=== PATIENT | female | born 1995 | race Caucasian/White ===

== ENCOUNTER → 2018-12-16 17:35 | Outpatient (CLI) | payer OTHER, SELFPAY ==
--- NOTE | 2018-12-16 | DI.MRI.S_ITS ---
PROCEDURE: MR ANKLE LT WO CON INDICATIONS: LEFT ANKLE PAIN TECHNIQUE: Noncontrast sagittal T1 spin echo and T2 fast spin echo with fat saturation, axial proton density fast spin echo and T2 fast spin echo with fat saturation, coronal T1 spin echo and T2 fast spin echo with fat saturation through the ankle/hindfoot. COMPARISON: None. FINDINGS: Image quality: Diagnostic. Bones and joints: No acute fracture, dislocation, or suspicious osseous lesion is identified involving the osseous structures of the midfoot or hindfoot. Ankle mortise is well-maintained. No osteochondral defects are appreciated. A small bone island along the anterior margin of the tibial plafond is incidentally noted. Subtle marrow edema involving the posterior aspect of the talus is present. No significant degenerative changes of the midfoot or hindfoot joints are present. No joint effusions are identified. Medial structures: The deltoid and spring ligaments are intact. The tibialis posterior, flexor digitorum longus, and flexor hallucis longus tendons are intact with a small amount of fluid is contained within their corresponding tendon sheaths. The posterior tibial nerve to the tarsal tunnel is within normal limits. Lateral structures: The anterior and posterior distal tibiofibular ligaments are intact. The anterior and posterior talofibular ligaments are intact. There is slight heterogeneity involving these ligaments. The calcaneofibular ligament is intact. There is mild edema about the calcaneofibular and posterior talofibular ligaments. The peroneus brevis and peroneus longus tendons are intact. Minimal peritendinous edema is incidentally noted. No significant hearing is appreciated. Anterior structures: The tibialis anterior, extensor hallucis longus, and extensor digitorum longus tendons appear intact. Posterior and plantar structures: Achilles tendon is intact. There are, there slight increased signal involving the mid to distal margin of the Achilles tendon with increased signal noted at the myotendinous junction. Medial and lateral bands of the plantar fascia are of normal thickness. IMPRESSION: 1. Mild Achilles tendinopathy. 2. Possible low-grade sprains involving the lateral ankle ligaments. No tethering is evident. 3. Mild tenosynovitis involving the medial flexor tendons. 4. Minimal marrow edema at the posterior talus may be degenerative or related to bone contusion. There is no fracture evident. Dictated by: Flex Barrientos M.D. on 12/17/2018 at 9:39 Approved by: Flex Barrientos M.D. on 12/17/2018 at 9:44
== END ==
PROVIDERS: Visit Provider Family Medicine
DX: M25.572 Pain in left ankle and joints of left foot (principal); M65.872 Other synovitis and tenosynovitis, left ankle and foot; M67.972 Unspecified disorder of synovium and tendon, left ankle and foot
CPT/HCPCS: 73721

== ENCOUNTER 2019-09-21 11:20 | Emergency (ER) | payer OTHER, SELFPAY ==
[2019-09-21] VITALS (14 sets, daily range): BP systolic 86–144; BP diastolic 54–90; PULSE 85–110; RESP 16–29; TEMP 36.7; O2SAT 96–100; BMI 43.6
[2019-09-21 13:11] LABS: Add Manual Diff / Slide Review NO; Basophils Absolute Auto 100 /uL (0-100); Basophils Percent Auto 0.5 % (0-2); Eosinophils Absolute Auto 400 /uL (0-450); Hematocrit 34.5 % (36-46); Hemoglobin 11.7 g/dL (12.0-16.0); Lymphocytes Absolute Auto 2500 /uL (1100-4500); Lymphocytes Percent Auto 18.3 % (25-40); Mean Corpuscular HGB Conc 33.9 % (30-36); Mean Corpuscular Hemoglobin 27.7 PG (26-34); Mean Corpuscular Volume 81.5 fL (80-100); Monocytes Absolute Auto 700 /uL (0-900); Monocytes Percent Auto 5.3 % (3-14); Neutrophils Absolute Auto 9900 /uL (1500-7000); Neutrophils Percent Auto 72.9 % (50-75); Platelet Count 226 X10^3/uL (150-400); Red Blood Cell Count 4.23 X10^6/uL (4.0-5.2); Red Cell Distribution Width 13.4 % (11.6-14.8); White Blood Cell Count 13.5 X10^3/uL (4.5-11.0)
[2019-09-21 13:15] LABS: Prothrombin Time 11.1 SECONDS (10.1-12.7)
[2019-09-21 13:17] LABS: PTT Partial Thromboplastin Tim 25 SECONDS (26.4-36.2)
[2019-09-21 13:18] LABS: Alanine Aminotransferase 14 IU/L (<35); Albumin 3.7 g/dL (3.5-5.0); Albumin Globulin Ratio 1.2 (1.0-2.8); Alkaline Phosphatase 129 U/L (38-126); Aspartate Aminotransferase 20 IU/L (14-36); BUN Creatinine Ratio 11.6 (6-22); Bilirubin Total 0.4 mg/dL (0.2-1.3); Blood Urea Nitrogen 5 mg/dL (7-17); Calcium 9.5 mg/dL (8.4-10.2); Carbon Dioxide 23 mmol/L (22-32); Chloride 106 mmol/L (98-107); Creatine Kinase 24 U/L (30-135); Estimated Glomerular Filt Rate > 60.0 mL/min (>60); Globulin 3.2 g/dL (1.7-4.1); Glucose 86 mg/dL (70-100); HEMOLYSIS < 15 (0-50); Lipase 78 U/L (23-300); Potassium 3.8 mmol/L (3.4-5.1); Sodium 135 mmol/L (137-145); Total Protein 6.9 g/dL (6.3-8.2)
[2019-09-21 13:30] LABS: Troponin I < 0.012 ng/mL (0.01-0.034)
--- NOTE | 2019-09-21 14:03 | ED.SYNCOPE ---
HPI - Syncope General Chief Complaint: Shortness of Breath/Dyspnea Stated Complaint: 32 weeks preg/syncope x3days ago Time Seen by Provider: 09/21/19 13:11 Source: patient Mode of arrival: Ambulatory Limitations: no limitations History of Present Illness HPI narrative: Patient complains of dyspnea since syncopal episode 3 days ago. Patient is 32 weeks . High risk due to history of epilepsy. On Thursday at checkout line in grocery store feel dizzy and passed out. She states this is not typical of a seizure. No postictal period shortness of breath is not typical of her asthma. Has exertional dyspnea. No chest pain. Patient OBGYN in [place]. Patient denies any vaginal bleeding or fluid leak. No abdominal or pelvic pain. Denies any injury from syncope. On Thursday she did have right calf pain like a charley horse. None since then. No prior history of blood clots in legs or lungs. No recent illness cough cold congestion fever chills. Patient is patient states was using inhaler at home without improvement. On Thursday before her syncope episode she states she did not eat or drink very much that morning and before passing out. Related Data Home Medications Medication Instructions Recorded Confirmed [VINPAT] #0 04/28/16 levetiracetam [Keppra] 250 mg PO BID #0 04/28/16 Allergies Allergy/AdvReac Type Severity Reaction Status Date / Time acetaminophen [From TYLENOL] Allergy Unknown Verified 09/21/19 15:48 latex [LATEX] Allergy Unknown Verified 09/21/19 15:48 oxycodone [OXYCODONE] Allergy Unknown Verified 09/21/19 15:48 Review of Systems Review of Systems Narrative: GENERAL: Denies chills, fatigue, malaise, fever, sweats. HEENT: Denies sinus pain, ear pain, sore throat, difficulty swallowing, dizziness. RESPIRATORY: Denies cough, wheezing, hemoptysis, sputum. Complains of dyspnea CARDIOVASCULAR: Denies chest pain, palpitations, orthopnea, edema, complains of syncope GASTROINTESTINAL: Denies nausea, vomiting, abdominal pain, diarrhea, constipation, melena. : Denies dysuria, frequency, incontinence, hematuria, urinary retention. MUSCULOSKELETAL: denies weakness, joint pain, or bony pain SKIN: Denies rash, skin lesions, or other NEUROLOGIC: Denies weakness, headache, numbness, change in speech, confusion, seizures, incoordination. PSYCHIATRIC: No concerning psychosocial issues. ROS Unobtainable: All systems reviewed & are unremarkable except as noted in HPI and below Patient History Social History Smoking Status: Never smoker Smoking Status: Never smoker Substance Use Type: does not use Exam Narrative Exam Narrative: GENERAL: patient appears stated age. Well-nourished, well-developed patient, in no distress, not toxic HEAD: Atraumatic. Normocephalic. EYES: Pupils equal round and reactive. Extraocular motions intact. No scleral icterus. No injection or drainage. ENT: Nose without bleeding, purulent drainage. Throat without erythema, tonsillar hypertrophy or exudate. Airway patent. NECK: Trachea midline. Non tender CARDIOVASCULAR: Regular rate and rhythm without murmurs, gallops, or rubs. RESPIRATORY: Clear to auscultation. Breath sounds equal bilaterally. No wheezes, rales, or rhonchi. GASTROINTESTINAL: Abdomen soft, non-tender, nondistended. EXTREMITIES: No edema or joint tenderness. BACK: Nontender without deformity or crepitance. No flank tenderness. NEURO: AOx3. SKIN: No rash or erythema of visible areas PSYCH: Not anxious, is cooperative Initial Vital Signs Initial Vital Signs: Vital Signs Temperature 98.0 F 09/21/19 11:52 Pulse Rate 105 H 09/21/19 11:52 Respiratory Rate 16 09/21/19 11:52 Blood Pressure 133/82 09/21/19 11:52 Pulse Oximetry 100 09/21/19 11:52 Course Orders Ordered: Discontinued Medications Sodium Chloride (Normal Saline 0.9%) 500 mls @ 1,000 mls/hr IV BOLUS ONE Stop: 09/21/19 17:46 Last Infusion: 09/21/19 19:10 Dose: 0 mls/hr Documented by: Admin: 09/21/19 17:57 Dose: 1,000 mls/hr Documented by: [email or web address] Reevaluation(s) Reevaluation #1: Heart rate 95 no dyspnea. No chest pain. Unable get heart tones but patient states as feel baby move while here. Patient agrees for CT scan PE protocol if D-dimer abnormal, understands risk of radiation to self as well as baby. However patient states she would like the CT scan so that way she does not to worry about whether she has pulmonary embolism or not Time: 16:45 Reevaluation #2: No distress 100% room air at this time at rest. No tachycardia. Patient up and walk to the bathroom on pulse ox, denies any dyspnea. 99% room air, denies any dyspnea Time: 18:48 Consultations Consultation #1: Spoke with Dr. William, patient trim setter helper OBGYN at [place]. He states patient may have CT scan PE protocol as that equates to the same amount of radiation for chest x-ray and V/Q scan. Time: 16:46 Vital Signs Vital signs: Vital Signs - 8 hr 09/21/19 11:52 09/21/19 13:45 09/21/19 14:31 Temperature 98.0 F Pulse Rate 105 H 88 Pulse Rate [Orthostatic Lying] 100 H Pulse Rate [Orthostatic Sitting] 94 H Pulse Rate [Orthostatic Standing] 98 H Respiratory Rate 16 24 Blood Pressure 133/82 133/73 Blood Pressure [Orthostatic Lying] 126/64 Blood Pressure [Orthostatic Sitting] 100/65 Blood Pressure [Orthostatic Standing] 121/74 Pulse Oximetry 100 100 09/21/19 14:32 09/21/19 15:00 09/21/19 15:31 Temperature Pulse Rate 99 H 85 86 Pulse Rate [Orthostatic Lying] Pulse Rate [Orthostatic Sitting] Pulse Rate [Orthostatic Standing] Respiratory Rate 20 16 19 Blood Pressure 133/73 127/66 104/56 L Blood Pressure [Orthostatic Lying] Blood Pressure [Orthostatic Sitting] Blood Pressure [Orthostatic Standing] Pulse Oximetry 99 99 98 09/21/19 16:00 09/21/19 16:30 09/21/19 16:33 Temperature Pulse Rate 98 H 98 H 97 H Pulse Rate [Orthostatic Lying] Pulse Rate [Orthostatic Sitting] Pulse Rate [Orthostatic Standing] Respiratory Rate 23 17 21 Blood Pressure 97/54 L 86/67 L 125/84 Blood Pressure [Orthostatic Lying] Blood Pressure [Orthostatic Sitting] Blood Pressure [Orthostatic Standing] Pulse Oximetry 97 96 98 09/21/19 16:34 09/21/19 17:00 09/21/19 17:30 Temperature Pulse Rate 98 H 105 H 110 H Pulse Rate [Orthostatic Lying] Pulse Rate [Orthostatic Sitting] Pulse Rate [Orthostatic Standing] Respiratory Rate 20 17 29 H Blood Pressure 125/84 135/75 144/90 H Blood Pressure [Orthostatic Lying] Blood Pressure [Orthostatic Sitting] Blood Pressure [Orthostatic Standing] Pulse Oximetry 97 98 97 09/21/19 17:51 09/21/19 18:00 Temperature Pulse Rate 93 H 91 H Pulse Rate [Orthostatic Lying] Pulse Rate [Orthostatic Sitting] Pulse Rate [Orthostatic Standing] Respiratory Rate 22 22 Blood Pressure 133/63 123/58 L Blood Pressure [Orthostatic Lying] Blood Pressure [Orthostatic Sitting] Blood Pressure [Orthostatic Standing] Pulse Oximetry 98 97 MDM - Syncope Lab Data Attestation: I reviewed the patient's lab results. Result diagrams: 09/21/19 13:00 09/21/19 13:00 Labs: Lab Results 09/21/19 09/21/19 09/21/19 Range/Units 13:00 13:00 13:00 WBC 13.5 H (4.5-11.0) X10^3/uL RBC 4.23 (4.0-5.2) X10^6/uL Hgb 11.7 L (12.0-16.0) g/dL Hct 34.5 L (36-46) % MCV 81.5 (80-100) fL MCH 27.7 (26-34) PG MCHC 33.9 (30-36) % RDW 13.4 (11.6-14.8) % Plt Count 226 (150-400) X10^3/uL Neut % (Auto) 72.9 (50-75) % Lymph % (Auto) 18.3 L (25-40) % [place] % (Auto) 5.3 (3-14) % Eos % (Auto) 3.0 (2-4) % Baso % (Auto) 0.5 (0-2) % Neut # (Auto) 9900 H (9019-9081) /uL Lymph # (Auto) 2500 (8079-5306) /uL [place] # (Auto) 700 (0-900) /uL Eos # (Auto) 400 (0-450) /uL Baso # (Auto) 100 (0-100) /uL PT 11.1 (10.1-12.7) SECONDS INR 1.0 (0.9-1.3) APTT 25 L (26.4-36.2) SECONDS D-Dimer (<230) ng/mL Sodium 135 L (137-145) mmol/L Potassium 3.8 (3.4-5.1) mmol/L Chloride 106 (98-107) mmol/L Carbon Dioxide 23 (22-32) mmol/L BUN 5 L (7-17) mg/dL Creatinine 0.43 L (0.52-1.04) mg/dL Estimated GFR > 60.0 (>60) mL/min BUN/Creatinine Ratio 11.6 (6-22) Glucose 86 (70-100) mg/dL Calcium 9.5 (8.4-10.2) mg/dL Magnesium (1.6-2.3) mg/dL Total Bilirubin 0.4 (0.2-1.3) mg/dL AST 20 (14-36) IU/L ALT 14 (<35) IU/L Alkaline Phosphatase 129 H (38-126) U/L Total Creatine Kinase 24 L (30-135) U/L CK-MB (CK-2) TNP CK-MB (CK-2) Rel Index TNP Troponin I < 0.012 (0.01-0.034) ng/mL Total Protein 6.9 (6.3-8.2) g/dL Albumin 3.7 (3.5-5.0) g/dL Globulin 3.2 (1.7-4.1) g/dL Albumin/Globulin Ratio 1.2 (1.0-2.8) Lipase 78 (23-300) U/L 09/21/19 09/21/19 Range/Units 13:00 13:00 WBC (4.5-11.0) X10^3/uL RBC (4.0-5.2) X10^6/uL Hgb (12.0-16.0) g/dL Hct (36-46) % MCV (80-100) fL MCH (26-34) PG MCHC (30-36) % RDW (11.6-14.8) % Plt Count (150-400) X10^3/uL Neut % (Auto) (50-75) % Lymph % (Auto) (25-40) % [place] % (Auto) (3-14) % Eos % (Auto) (2-4) % Baso % (Auto) (0-2) % Neut # (Auto) (1520-3377) /uL Lymph # (Auto) (0955-6642) /uL [place] # (Auto) (0-900) /uL Eos # (Auto) (0-450) /uL Baso # (Auto) (0-100) /uL PT (10.1-12.7) SECONDS INR (0.9-1.3) APTT (26.4-36.2) SECONDS D-Dimer 2478 H (<230) ng/mL Sodium (137-145) mmol/L Potassium (3.4-5.1) mmol/L Chloride (98-107) mmol/L Carbon Dioxide (22-32) mmol/L BUN (7-17) mg/dL Creatinine (0.52-1.04) mg/dL Estimated GFR (>60) mL/min BUN/Creatinine Ratio (6-22) Glucose (70-100) mg/dL Calcium (8.4-10.2) mg/dL Magnesium 1.8 (1.6-2.3) mg/dL Total Bilirubin (0.2-1.3) mg/dL AST (14-36) IU/L ALT (<35) IU/L Alkaline Phosphatase (38-126) U/L Total Creatine Kinase (30-135) U/L CK-MB (CK-2) CK-MB (CK-2) Rel Index Troponin I (0.01-0.034) ng/mL Total Protein (6.3-8.2) g/dL Albumin (3.5-5.0) g/dL Globulin (1.7-4.1) g/dL Albumin/Globulin Ratio (1.0-2.8) Lipase (23-300) U/L Imaging Data US - DVT: Radiologist's Impression: [address] [address] Ultrasound Report Signed Patient: Katalina Gonzales KMR#: [id number] : 1995Acct:[id number] Age/Sex: 23 / FDate of Service: 09/21/19 Loc: ED Accession Number: [id number] Procedure: US periph venous low extrem rt Ordering Provider: Abraham Rolle MD PROCEDURE: US PERIP VENOUS LOW EXTREM RT INDICATIONS: RIGHT CALF PAIN TECHNIQUE: Real-time imaging, as well as color and pulse Doppler interrogation, were performed of the lower extremity deep veins from the inguinal ligament to the popliteal fossa. COMPARISON: None. FINDINGS: The common femoral, femoral and popliteal veins are normally compressible, and free of intraluminal thrombus. Color and pulse Doppler demonstrate normal phasic intraluminal flow. There is normal augmentation response to distal compression maneuver. IMPRESSION: No DVT in the right lower extremity. Dictated by: Suraj Jones M.D. on 09/21/2019 at 14:23 Approved by: Suraj Jones M.D. on 09/21/2019 at 14:28 ECG Data Attestation: I personally reviewed and interpreted this ECG as follows: Interpretation: Sinus rhythm ventricular rate [address] elevation or depression MDM Narrative Medical decision making narrative: Appropriate for discharge home. No PE no dissection. No DVT. Onset 3 days ago EKG and troponin normal. 99% room air walking around the emergency department. No repeat enzymes or EKG indicated. Syncopal episode on Thursday likely due to vasovagal, patient did not eat or drink very much prior to the event on that day. Dyspnea since then nonspecific however no PE. No asthma symptoms. However 100% room air and not dyspneic on exertion. No signs of congestive heart failure or fluid overload. Appropriate for discharge home Discharge Plan Departure Patient Disposition: Home Clinical Impression: Syncope and collapse Dyspnea Qualifiers: Dyspnea type: unspecified Qualified Code(s): R06.00 - Dyspnea, unspecified Discharge Date/Time: 09/21/19 19:12 Instructions: DI for Syncope in Adults (Fainting), DI for Shortness of Breath Activity Restrictions/Additional Instructions: Call your OBGYN and Maternal clinic tomorrow for office re-evaluation and recheck within a week. Return immediately if worse or if any questions or concerns. Continue home medications Prescriptions: No Action levetiracetam [Keppra] 250 MG tablet 250 mg PO BID Qty: 0 RF: 0 [VINPAT] Qty: 0 RF: 0 Referrals: Cindy Almaraz MD [Primary Care Provider] -
[2019-09-21 16:34] LABS: Magnesium 1.8 mg/dL (1.6-2.3)
[2019-09-21 16:47] LABS: D Dimer 2478 ng/mL (<230)
--- NOTE | 2019-09-21 17:15 | DI.CT.S_ITS ---
PROCEDURE: CT ANGIO CHEST PE PROTOCOL INDICATIONS: syncope/soa TECHNIQUE: After the administration of intravenous contrast, 2 mm thick sections acquired from the pulmonary apices to the posterior costophrenic angles. 3-dimensional maximum intensity projection (MIP) coronal and sagittal reformats were then acquired through the thorax. For radiation dose reduction, the following was used: automated exposure control, adjustment of mA and/or kV according to patient size. COMPARISON: None. FINDINGS: Image quality: Suboptimal study secondary to patient body habitus and contrast timing. Pulmonary arteries: Heterogeneous opacification of subsegmental pulmonary arteries secondary to suboptimal imaging technique. No large occlusive pulmonary artery embolus. Pulmonary arteries are normal in size, and demonstrate no intraluminal filling defects to suggest central pulmonary embolism. Lungs and pleura: Lungs are clear. No pleural effusions or pneumothorax. Central and peripheral airways are patent. Mediastinum: Heart size is normal, without pericardial effusion. No mediastinal or hilar adenopathy. Thoracic aorta is normal in caliber and enhancement. Esophagus is normal in caliber, with a very small hiatal hernia. Bones and chest wall: No suspicious bony lesions. Ribs and thoracic spine appear intact throughout. Thyroid gland is normal . No axillary or supraclavicular adenopathy. Abdomen: Visualized upper abdominal solid organs appear normal in the early arterial phase of enhancement. The gallbladder surgically absent. IMPRESSION: 1. Suboptimal study, but no obvious large pulmonary embolus. 2. No pulmonary pathology. 3. Very small hiatal hernia. Dictated by: Ashly Alicea M.D. on 09/21/2019 at 18:09 Approved by: Ashly Alicea M.D. on 09/21/2019 at 18:15
[2019-09-21] MEDS: SODIUM CHLORIDE 0.9% 500 ML 1000 ML IV (17:57)
== END 2019-09-21 19:12 | disposition home or self-care (01) ==
PROVIDERS: Emergency Provider Emergency Medicine; PCP Family Medicine
DX: R55 Syncope and collapse (principal); R06.00 Dyspnea, unspecified; Z3A.32 32 weeks gestation of pregnancy
CPT/HCPCS: 36415; 71275; 80053; 82550; 83690; 83735; 84484; 85025; 85379; 85610; 85730; 93005; 93971; 99284; 99285

== ENCOUNTER → 2021-03-13 15:48 | Outpatient (CLI) | payer OTHER, SELFPAY ==
--- NOTE | 2021-03-13 | DI.MRI.S_ITS ---
PROCEDURE: MR HIP LT WO CON INDICATIONS: pain in left hip TECHNIQUE: Noncontrast coronal T1 spin echo and STIR through the bony pelvis. Coronal and axial T2 fast spin echo with fat saturation, sagittal T1 spin echo, and oblique axial T2 fast spin echo with fat saturation through the hip. COMPARISON: None. FINDINGS: Image quality: Excellent. Bones and joints: Bone marrow of the pelvic ring and proximal femurs show normal signal throughout. No intraosseous lesions or fractures. No avascular necrosis of the femoral heads. The visualized lower lumbar spine appears normally aligned. Tendons and ligaments: The gluteus medius and minimus tendons appear intact, without associated muscle atrophy. The nearby proximal iliotibial band also appears intact. The iliopsoas tendon appears intact, without adjacent bursal fluid collections or evidence for impingement syndrome. The origin of the hamstring tendon is intact at the ischial tuberosity, as well as the associated sacrotuberous ligament. The straight and reflected heads of the rectus femoris muscle origin appear intact, as well as the conjoint tendon. The ligamentum teres appears intact where visualized. Labrum and cartilage: The acetabular labrum appears intact in the absence of intra-articular contrast. Cartilage surface of the femoral head appears of normal thickness. The alpha angle of the femur is within normal limits at less than 55 degrees. Soft tissues: Visualized muscles demonstrate normal bulk and internal signal. Quadratus femoris muscle demonstrates no internal edema to suggest ischiofemoral impingement. The proximal sciatic neurovascular bundle appears normal adjacent to the hamstring tendons. No free pelvic fluid. Bladder wall thickness is normal. Genitourinary structures and bowel loops appear normal where visualized. IMPRESSION: Negative examination. No explanation for left hip pain. Dictated by: Robina Johnson M.D. on 03/14/2021 at 8:40 Approved by: Robina Johnson M.D. on 03/14/2021 at 8:50
== END ==
PROVIDERS: PCP Family Medicine; Referring Provider Orthopaedic Surgery; Visit Provider Orthopaedic Surgery
DX: M25.552 Pain in left hip (principal)
CPT/HCPCS: 73721

== ENCOUNTER → 2021-03-25 08:31 | Outpatient (CLI) | payer OTHER, SELFPAY ==
--- NOTE | 2021-03-25 | DI.MRI.S_ITS ---
PROCEDURE: MR LUMBAR SPINE WO CON INDICATIONS: LOW BACK PAIN TECHNIQUE: Noncontrast sagittal T1 spin echo and T2 fast echo, sagittal STIR, axial T1 and T2 fast spin echo through the lumbar spine. In cases with scoliosis, additional coronal T2 fast spin echo may be performed. COMPARISON: None. FINDINGS: Image quality: Excellent. Alignment and Curvature: Normal lumbar vertebral body height and alignment. Bone Marrow: Normal bone marrow signal intensity. No suspicious focal marrow signal abnormality or bone marrow edema. Spinal Cord: No spinal canal or neural foraminal stenosis at any level. Conus medullaris terminates at the normal level. Visualized cord demonstrates normal signal and size. Regional Soft Tissues: Normal height and hydration of the intervertebral discs. No disc herniation or annular fissure identified. Prevertebral and paraspinous soft tissues are normal. T12-L1: Normal appearance. L1-L2: Normal appearance. L2-L3: Normal appearance. L3-L4: Normal appearance. L4-L5: Normal appearance. L5-S1: Normal appearance. IMPRESSION: Normal MRI of the lumbar spine. No degenerative changes, spinal canal stenosis, neural foraminal narrowing, or evidence of focal nerve root impingement. No imaging abnormality to explain low back pain. Dictated by: Edvin Wharton M.D. on 03/25/2021 at 9:35 Approved by: Edvin Wharton M.D. on 03/25/2021 at 9:37
== END ==
PROVIDERS: PCP Family Medicine; Referring Provider Family Medicine; Visit Provider Family Medicine
DX: M54.50 Low back pain, unspecified (principal)
CPT/HCPCS: 72148

== ENCOUNTER 2022-01-20 13:41 | Emergency (ER) | payer OTHER, SELFPAY ==
[2022-01-20 13:53] VITALS: BP 141/82; PULSE 103; RESP 20; TEMP 37.3; O2SAT 100; BMI 43.2
--- NOTE | 2022-01-20 14:06 | PC.NURSE ---
Seizure pads placed on bed.
[2022-01-20 14:40] LABS: Add Manual Diff / Slide Review NO; Basophils Absolute Auto 100 /uL (0-100); Basophils Percent Auto 0.5 % (0-2); Eosinophils Absolute Auto 300 /uL (0-450); Eosinophils Percent Auto 1.8 % (2-4); Hematocrit 41.6 % (36-46); Hemoglobin 13.9 g/dL (12.0-16.0); Lymphocytes Absolute Auto 2800 /uL (1100-4500); Lymphocytes Percent Auto 14.3 % (25-40); Mean Corpuscular HGB Conc 33.5 % (30-36); Mean Corpuscular Hemoglobin 27.4 PG (26-34); Mean Corpuscular Volume 81.7 fL (80-100); Monocytes Absolute Auto 800 /uL (0-900); Monocytes Percent Auto 3.9 % (3-14); Neutrophils Absolute Auto 15600 /uL (1500-7000); Neutrophils Percent Auto 79.5 % (50-75); Platelet Count 295 X10^3/uL (150-400); Red Blood Cell Count 5.09 X10^6/uL (4.0-5.2); Red Cell Distribution Width 13.1 % (11.6-14.8); White Blood Cell Count 19.7 X10^3/uL (4.5-11.0)
--- NOTE | 2022-01-20 14:41 | DI.CT.S_ITS ---
PROCEDURE: CT HEAD/BRAIN WO CON INDICATIONS: seizure, headache, hx of brain cyst TECHNIQUE: Noncontrast 4.5 mm thick angled axial sections acquired from the foramen magnum to the vertex, with coronal and sagittal reformats. For radiation dose reduction, the following was used: automated exposure control, adjustment of mA and/or kV according to patient size. COMPARISON: None. FINDINGS: Image quality: Excellent. CSF spaces: Basal cisterns are patent. No extra-axial fluid collections. Ventricles are normal in size and shape. Brain: No midline shift. No intracranial masses or hemorrhage. Mak-white matter interface is normal. Mild cystic fullness can be seen within the pineal region, yet without a focal cyst identified on these images. Skull and face: Calvarium and visualized facial bones are intact, without suspicious lesions. Sinuses: There is partial visualization of opacification of the right maxillary sinus. Within the posterior left ethmoid air cells, there is [id number] opacification seen. No abnormal fluid is seen within the mastoid air cells. IMPRESSION: No significant noncontrast head CT abnormality can be seen. No acute intracranial hemorrhage is seen. Right-sided paranasal sinus disease is partially seen. Dictated by: Isaac Ham M.D. on 01/20/2022 at 14:26 Approved by: Isaac Ham M.D. on 01/20/2022 at 14:27
--- NOTE | 2022-01-20 14:41 | ED.SEIZURE ---
HPI - Seizure General Chief Complaint: Seizure Stated Complaint: seizure/severe headache/ Time Seen by Provider: 01/20/22 14:30 Source: patient Mode of arrival: Wheelchair History of Present Illness HPI Narrative: Patient is a 26-year-old female. Has a history of seizures. Does see a neurologist. Started having neck discomfort several weeks ago. Was seen at a outside emergency department. Was given muscle relaxers. Her neck pain has improved but she is still having a left-sided headache. She states that the seizure that she had earlier today was because of the discomfort she was having in her neck. It was unwitnessed. She woke up afterwards. Arrived by private vehicle. She did not drive in. Her only current complaint is discomfort in the back of the left side of her head. Related Data Home Medications Medication Instructions Recorded Confirmed cyclobenzaprine 10 mg tablet 10 mg PO TID PRN Muscle Spasm 01/20/22 01/20/22 diazepam 5 mg tablet 5 - 10 mg PO TID PRN Muscle Spasm 01/20/22 01/20/22 ibuprofen 800 mg tablet 800 mg PO Q6HR PRN Pain (Scale 01/20/22 01/20/22 Score 4-6) levetiracetam 750 mg tablet See Rx Instructions .Route .COMPLEX 01/20/22 01/20/22 lithium carbonate 300 mg 300 mg PO BID 01/20/22 01/20/22 tablet,extended release lithium carbonate 450 mg 450 mg PO BID 01/20/22 01/20/22 tablet,extended release Allergies Allergy/AdvReac Type Severity Reaction Status Date / Time acetaminophen [From TYLENOL] Allergy Unknown Verified 01/20/22 14:21 latex [LATEX] Allergy Unknown Verified 01/20/22 14:21 oxycodone [OXYCODONE] Allergy Unknown Verified 01/20/22 14:21 Review of Systems Constitutional Constitutional: Reports system reviewed and no additional complaints, except as documented Eyes Eyes: Reports system reviewed and no additional complaints, except as documented Cardiovascular Cardiovascular: Reports system reviewed and no additional complaints, except as documented Respiratory Respiratory: Reports system reviewed and no additional complaints, except as documented Gastrointestinal Gastrointestinal: Reports system reviewed and no additional complaints, except as documented Integumentary/Breasts Skin/Breast: Reports system reviewed and no additional complaints, except as documented Neurologic Neurologic: Reports system reviewed and no additional complaints, except as documented Hematologic/Lymphatic On Anticoagulants: No Allergic/Immunologic Allergic/Immunologic: Reports system reviewed and no additional complaints, except as documented Patient History Medical History Seizures Social History Smoking Status: Never smoker Smoking Status: Never smoker Substance Use Type: does not use Exam Initial Vital Signs Initial Vital Signs: Vital Signs Temperature 99.1 F 01/20/22 13:53 Pulse Rate 103 H 01/20/22 13:53 Respiratory Rate 20 01/20/22 13:53 Blood Pressure 141/82 H 01/20/22 13:53 Pulse Oximetry 100 01/20/22 13:53 Oxygen Delivery Method 01/20/22 13:53 Const General: cooperative, comfortable, well developed and No ill appearing HENMT Head: normal to inspection, normocephalic, No contusion, No laceration and scalp tenderness (Left occipital region) Resp Effort & Inspection: normal respiratory effort Auscultation: clear to auscultation bilaterally Cardio Rate: regular rate Skin General: no rashes or lesions noted Neuro General: patient alert, patient awake and moves all extremities Cognition: normal cognition Speech: speech normal Extrem General: normal to inspection and capillary refill normal Course Orders Ordered: ED Orders 01/20/22 14:34 Complete Blood Count AUTO DIFF Stat Comprehensive Metabolic Panel Stat Lipase Stat 01/20/22 14:41 CT head/brain wo con Stat 01/20/22 15:10 Covid-19 + FLU A/B + RSV - PCR Stat Discontinued Medications Sodium Chloride (Normal Saline 0.9%) 1,000 mls @ 1,000 mls/hr IV BOLUS ONE Stop: 01/20/22 15:20 Last Admin: 01/20/22 14:53 Dose: 1,000 mls/hr Documented By: BARTOLO Ketorolac Tromethamine (Ketorolac 30 Mg/Ml Vial) 30 mg IV NOW ONE Stop: 01/20/22 14:42 Last Admin: 01/20/22 14:53 Dose: 30 mg Documented By: BARTOLO Ondansetron HCl (Ondansetron 4 Mg/2 Ml Inj) 4 mg IV NOW ONE Stop: 01/20/22 14:21 Last Admin: 01/20/22 14:54 Dose: 4 mg Documented By: BARTOLO Vital Signs Vital signs: Vital Signs - 8 hr 01/20/22 13:53 Temperature 99.1 F Pulse Rate 103 H Respiratory Rate 20 Blood Pressure 141/82 H Pulse Oximetry 100 Oxygen Delivery Method Room Air MDM - Seizure Lab Data Attestation: I reviewed the patient's lab results. Result diagrams: 01/20/22 14:34 01/20/22 14:34 Labs: Lab Results 01/20/22 01/20/22 01/20/22 Range/Units 14:34 14:34 15:10 WBC 19.7 H (4.5-11.0) X10^3/uL RBC 5.09 (4.0-5.2) X10^6/uL Hgb 13.9 (12.0-16.0) g/dL Hct 41.6 (36-46) % MCV 81.7 (80-100) fL MCH 27.4 (26-34) PG MCHC 33.5 (30-36) % RDW 13.1 (11.6-14.8) % Plt Count 295 (150-400) X10^3/uL Neut % (Auto) 79.5 H (50-75) % Lymph % (Auto) 14.3 L (25-40) % [place] % (Auto) 3.9 (3-14) % Eos % (Auto) 1.8 L (2-4) % Baso % (Auto) 0.5 (0-2) % Neut # (Auto) 01951 H (8996-6094) /uL Lymph # (Auto) 2800 (2929-7448) /uL [place] # (Auto) 800 (0-900) /uL Eos # (Auto) 300 (0-450) /uL Baso # (Auto) 100 (0-100) /uL Sodium 137 (137-145) mmol/L Potassium 3.8 (3.4-5.1) mmol/L Chloride 102 (98-107) mmol/L Carbon Dioxide 28 (22-32) mmol/L BUN 9 (7-17) mg/dL Creatinine 0.65 (0.52-1.04) mg/dL Estimated GFR > 60 (>60) mL/min BUN/Creatinine Ratio 13.8 (6-22) Glucose 94 (70-100) mg/dL Calcium 9.2 (8.4-10.2) mg/dL Total Bilirubin 0.5 (0.2-1.3) mg/dL AST 25 (14-36) IU/L ALT 44 H (<35) IU/L Alkaline Phosphatase 89 (38-126) U/L Total Protein 8.3 H (6.3-8.2) g/dL Albumin 4.4 (3.5-5.0) g/dL Globulin 3.9 (1.7-4.1) g/dL Albumin/Globulin Ratio 1.1 (1.0-2.8) Lipase 55 (23-300) U/L SARS-CoV-2 (PCR) Negative (Negative) Influenza A (RT-PCR) Flu a negative (NEGATIVE) Influenza B (RT-PCR) Flu b negative (NEGATIVE) RSV (PCR) Negative (Negative) Point of Care Testing Test Results Negative Urine Dip Bedside Urine Glucose Negative Bedside Urine Bilirubin - Negative Bedside Urine Ketone - Negative Urine Specific [place] 1.010 Bedside Urine Occult Blood - Negative Bedside Urine pH 7.5 Bedside Urine Protein - Negative Bedside Urine Urobilinogen - Negative Bedside Urine Leukocytes - Negative Esterase Imaging Data CT scan - head: Radiologist's Impression: [place] [address] CT Scan Report Signed Patient: Katalina Gonzales MR#: [id number] : 1995 Acct:[id number] Age/Sex: 26 / F Date of Service: 01/20/22 Loc: ED Accession Number: [id number] ?? Procedure: CT head/brain wo con Ordering Provider: Bird Chan D.O. PROCEDURE:? CT HEAD/BRAIN WO CON ? INDICATIONS:? seizure, headache, hx of brain cyst ? TECHNIQUE:? Noncontrast 4.5 mm thick angled axial sections acquired from the foramen magnum to the vertex, with coronal and sagittal reformats.? For radiation dose reduction, the following was used:? automated exposure control, adjustment of mA and/or kV according to patient size.? ? COMPARISON:? None. ? FINDINGS:? Image quality:? Excellent.? ? CSF spaces:? Basal cisterns are patent.? No extra-axial fluid collections.? Ventricles are normal in size and shape.? ? Brain:? No midline shift.? No intracranial masses or hemorrhage.? Mak-white matter interface is normal.? Mild cystic fullness can be seen within the pineal region, yet without a focal cyst identified on these images. ? Skull and face:? Calvarium and visualized facial bones are intact, without suspicious lesions.? ? Sinuses:? There is partial visualization of opacification of the right maxillary sinus.? Within the posterior left ethmoid air cells, there is [id number] opacification seen. No abnormal fluid is seen within the mastoid air cells. ? ? IMPRESSION:? No significant noncontrast head CT abnormality can be seen. ? No acute intracranial hemorrhage is seen.? ? Right-sided paranasal sinus disease is partially seen. ? ? Dictated by: Isaac Ham M.D. on 01/20/2022 at 14:26 ? ? Approved by: Isaac Ham M.D. on 01/20/2022 at 14:27? MDM Narrative Medical decision making narrative: CT scan today is unremarkable. Exam is unremarkable. No seizure-like activity here in the ER. Does have a history of seizures. This has been her for seizure over the past 6 years. Will not make any adjustments to her seizure medication. Will have her talk with her neurologist regarding this. She is a follow-up with her primary doctor tomorrow. Low suspicion for meningitis. Low suspicion for trauma. She states this you should today was because of the discomfort she was having in her head. Will have her keep her follow-up appointment tomorrow with her primary doctor. She was given return precautions. Discharge Plan Departure Patient Disposition: Home Clinical Impression: Seizure, Headache Instructions: DI for Seizure Disorder -- Adult Activity Restrictions/Additional Instructions: Continue to take all of your medications as directed and contact her primary doctor for a follow-up. Prescriptions: No Action cyclobenzaprine 10 mg tablet 10 mg PO TID PRN (Reason: Muscle Spasm) ibuprofen 800 mg tablet 800 mg PO Q6HR PRN (Reason: Pain (Scale Score 4-6)) lithium carbonate 300 mg tablet extended release 300 mg PO BID Label Comments: TAKE 1 TABLET BY MOUTH TWICE DAILY Rx Instructions: 450+300mg = 750 mg bid lithium carbonate 450 mg tablet extended release 450 mg PO BID Label Comments: TAKE 1 TABLET BY MOUTH TWICE DAILY Rx Instructions: 450+300mg = 750 mg bid levetiracetam 750 mg tablet See Rx Instructions .ROUTE .COMPLEX Rx Instructions: 2.5 tabs q am and 3 tabs q pm diazepam 5 mg tablet 5 - 10 mg PO TID PRN (Reason: Muscle Spasm) Label Comments: TAKE 1 TO 2 TABLETS BY MOUTH THREE TIMES DAILY NEEDED FOR SPASMS Referrals: ProviderCourtney [Primary Care Provider] -
[2022-01-20 14:52] LABS: Alanine Aminotransferase 44 IU/L (<35); Albumin 4.4 g/dL (3.5-5.0); Albumin Globulin Ratio 1.1 (1.0-2.8); Alkaline Phosphatase 89 U/L (38-126); Aspartate Aminotransferase 25 IU/L (14-36); BUN Creatinine Ratio 13.8 (6-22); Bilirubin Total 0.5 mg/dL (0.2-1.3); Blood Urea Nitrogen 9 mg/dL (7-17); Calcium 9.2 mg/dL (8.4-10.2); Carbon Dioxide 28 mmol/L (22-32); Chloride 102 mmol/L (98-107); Estimated Glomerular Filt Rate > 60 mL/min (>60); Globulin 3.9 g/dL (1.7-4.1); Glucose 94 mg/dL (70-100); HEMOLYSIS 16 (0-50); Lipase 55 U/L (23-300); Potassium 3.8 mmol/L (3.4-5.1); Sodium 137 mmol/L (137-145); Total Protein 8.3 g/dL (6.3-8.2)
[2022-01-20] MEDS: SODIUM CHLORIDE 0.9% 1,000 ML 1000 ML IV (14:53)
[2022-01-20] MEDS: KETOROLAC 30 MG/ML VIAL IV (14:53)
[2022-01-20] MEDS: ONDANSETRON 4 MG/2 ML INJ IV (14:54)
[2022-01-20 15:04] LABS: Influenza A - CEPHEID Flu A NEGATIVE (NEGATIVE); Influenza B - CEPHEID Flu B NEGATIVE (NEGATIVE); Respiratory Syncytial Virus Negative (Negative)
[2022-01-20 15:11] LABS: COVID-19 CEPHEID 4-PLEX PCR Negative (Negative)
[2022-01-20 15:45] VITALS: BP 124/71; PULSE 81; RESP 12; O2SAT 100
[2022-01-20 16:59] VITALS: BP 132/74; PULSE 92; O2SAT 100
== END 2022-01-20 16:55 | disposition home or self-care (01) ==
PROVIDERS: Emergency Provider Emergency Medicine
DX: R56.9 Unspecified convulsions (principal); R51.9 Headache, unspecified; Z20.822 Contact with and (suspected) exposure to COVID-19
CPT/HCPCS: 0241U; 36415; 70450; 80053; 81003; 81025; 83690; 85025; 96361; 96374; 96375; 99284; J1885; J2405